=== PATIENT | male | born 1965 | race African-American/Black ===

== ENCOUNTER 2016-10-09 19:32 | Emergency (ER) | payer OTHER ==
[2016-10-09] MEDS ORDERED: SODIUM CHLORIDE 0.9% 500 ML IV STA (20:00)
[2016-10-09] MEDS ORDERED: SODIUM CHLORIDE 0.9% 1,000 ML IV STA (20:00)
[2016-10-09] MEDS ORDERED: METOCLOPRAMIDE 5 MG/ML 2 ML VIAL IVP STA (20:00)
[2016-10-09] MEDS ORDERED: cloNIDine HCL 0.1 MG TAB PO STA (20:02)
--- NOTE | 2016-10-09 20:09 | ED ---
General Adult HPI - General Chief complaint: Shortness of Breath Stated complaint: JEAN Time Seen by Provider: 10/09/16 19:39 Source: patient, EMS, RN notes reviewed, old records reviewed Mode of arrival: EMS Limitations: no limitations - History of Present Illness Initial comments: Chief complaint history of present illness is a 51-year-old male who is has been at [facility] for the past 48 hours cause of heroin abuse. The patient is on medications for heroin abuse today he reported he was feeling short of breath. Pulse ox as recorded at [facility] was 84%. Here is 98%. Patient reports she is feeling somewhat better. This is without supplemental oxygen. Denying chest pain at this time. No radiation of discomfort. Patient appears quite comfortable - Related Data Home Medications Medication Instructions Recorded Confirmed Darunavir Ethanolate [Prezista] 800 mg PO W/BRKFST 08/06/13 10/09/16 Ritonavir [Norvir] 100 mg PO DAILY 08/06/13 10/09/16 Acetaminophen Tab [Tylenol Tab] 650 mg PO Q4H PRN MDD 6 TABLETS 10/09/16 Buprenorphine HCl [Subutex] 2 mg SUBLINGUAL BID PRN 10/09/16 10/09/16 Emtricitabine/Tenofovir (Tdf) 1 tab PO DAILY 10/09/16 10/09/16 [Truvada 200 mg-300 mg Tablet] Ibuprofen [Motrin] 600 mg PO Q6HR PRN 10/09/16 10/09/16 LORazepam [Ativan] 1 mg PO Q4H PRN 10/09/16 10/09/16 Mirtazapine [Remeron] 15 mg PO HS 10/09/16 10/09/16 Ondansetron HCl [Zofran] 8 mg PO Q6H PRN 10/09/16 10/09/16 cloNIDine HCL [Catapres] 0.1 mg PO Q4H PRN 10/09/16 10/09/16 Allergies Allergy/AdvReac Type Severity Reaction Status Date / Time ibuprofen [From Motrin] Allergy Mild Swelling Verified 03/23/14 14:54 ketorolac tromethamine Allergy Mild Swelling Verified 03/23/14 01:46 [From Toradol] Penicillins Allergy Mild Itching Verified 03/23/14 01:46 Review of Systems ROS Statement: Those systems with pertinent positive or pertinent negative responses have been documented in the HPI. Review of systems. Patient denies headache or visual acuity changes no chest pain at this time he states he felt short of breath at [facility] is not appear to be dyspneic here. No nausea no vomiting no seizure activity. Patient states he last used heroin 3 days ago. All systems were reviewed past medical problems significant for HIV, sciatica, marijuana and heroin use. Vital signs temp 98.6 pulse 77 respiratory rate 20 pulse ox 98% on room air blood pressure 120/75 ROS Other: All systems not noted in ROS Statement are negative. Past Medical History Past Medical History: No Reported History Additional Past Medical History / Comment(s): HIV, sciatica, Low Back Pain History of Any Multi-Drug Resistant Organisms: None Reported Past Surgical History: No Surgical Hx Reported Past Anesthesia/Blood Transfusion Reactions: No Reported Reaction Past Psychological History: Anxiety, Depression Smoking Status: Current every day smoker Past Alcohol Use History: None Reported Past Drug Use History: Heroin, Marijuana - Past Family History Mother Family Medical History: No Reported History Additional Family Medical History / Comment(s): General Exam - General Exam Comments Initial Comments: General: The patient is awake and alert, in no apparent distress upon arrival to emergency room. Chief complaint was shortness of breath at [facility] for heroin use. Vital signs temp 98.6 pulse 77 respiratory rate 20 pulse ox 98% on room air with a blood pressure 120/75 area patient does not appear dyspneic or anxious. Eye: Pupils are equal, round and reactive to light, extra-ocular movements are intact ; there is normal conjunctiva bilaterally. No signs of icterus. Ears, nose, mouth and throat: There are moist mucous membranes and no oral lesions. Neck: The neck is supple, there is no tenderness, no stridor. Cardiovascular: There is a regular rate and rhythm. No murmur, rub or gallop is appreciated. Respiratory: Lungs are clear to auscultation, respirations are non-labored, breath sounds are equal. No wheezes, stridor, rales, or rhonchi. Pulse ox 90% room air with respiratory rate of 20. Gastrointestinal: No complaint of abdominal pain no nausea no vomiting no diarrhea. Back: Denies back pain. Musculoskeletal: No complaint of pain to upper or lower extremities. Patient states he does not shoot heroin but rather he snorts it. Neurological: No noted or complained of any focal or lateralizing findings. Skin: Tattoos on forearms Limitations: no limitations Course Vital Signs 10/09/16 10/09/16 10/09/16 19:35 19:59 20:47 Temperature 98.6 F Pulse Rate 77 75 Respiratory 20 20 18 Rate Blood Pressure 120/75 117/66 O2 Sat by Pulse 98 97 Oximetry 10/09/16 21:30 Temperature Pulse Rate 67 Respiratory 16 Rate Blood Pressure 114/66 O2 Sat by Pulse 98 Oximetry EKG Findings - EKG Comments: EKG Findings:: EKG was done and reviewed at 2033 showing a normal sinus rhythm with nonspecific ST-T wave changes rate 70. Eye was 150 QRS 90 QT [address] Kulkarni. This EKG was compared to one done on 03/23/2014 and they're very similar. Dr. Kulkarni Medical Decision Making - Medical Decision Making Medical decision making; patient's white count is 9.6 hemoglobin 12.8 hematocrit of 38. D-dimer just barely above normal at 0.63. The patient's potassium is 4.5, BUN 14 creatinine 0.8 GFR greater than 60, glucose 101. Chest x-ray was done and reviewed by radiologist his impression is the heart size is normal. The pulmonary vasculature is normal. The lungs are clear. Impression; no acute home and I process. As read by Dr. Orr Patient had to be awakened to discuss the findings. His pulse ox is 98% ,heart rate 70, blood pressure 116/80. Patient is not dyspneic, is not anxious. He will be released to go back to his rehab program. - Lab Data Result diagrams: 10/09/16 20:20 10/09/16 20:20 Lab Results 10/09/16 10/09/16 10/09/16 Range/Units 20:20 20:20 20:20 WBC 9.6 (3.8-10.6) k/uL RBC 4.26 L (4.30-5.90) m/uL Hgb 12.8 L (13.0-17.5) gm/dL Hct 38.2 L (39.0-53.0) % MCV 89.5 (80.0-100.0) fL MCH 30.1 (25.0-35.0) pg MCHC 33.6 (31.0-37.0) g/dL RDW 15.8 H (11.5-15.5) % Plt Count 265 (150-450) k/uL Neutrophils % 63 % Lymphocytes % 30 % Monocytes % 4 % Eosinophils % 2 % Basophils % 1 % Neutrophils # 6.0 (1.3-7.7) k/uL Lymphocytes # 2.8 (1.0-4.8) k/uL Monocytes # 0.4 (0-1.0) k/uL Eosinophils # 0.2 (0-0.7) k/uL Basophils # 0.1 (0-0.2) k/uL PT (9.0-12.0) sec INR (<1.2) APTT (22.0-30.0) sec D-Dimer (<0.60) mg/L FEU Sodium 139 (137-145) mmol/L Potassium 4.7 (3.5-5.1) mmol/L Chloride 106 (98-107) mmol/L Carbon Dioxide 24 (22-30) mmol/L Anion Gap 9 mmol/L BUN 14 (9-20) mg/dL Creatinine 0.80 (0.66-1.25) mg/dL Est GFR (MDRD) Af Amer >60 (>60 ml/min/1.73 sqM) Est GFR (MDRD) Non-Af >60 (>60 ml/min/1.73 sqM) Glucose 101 H (74-99) mg/dL Calcium 9.0 (8.4-10.2) mg/dL Magnesium 1.7 (1.6-2.3) mg/dL Total Bilirubin 0.3 (0.2-1.3) mg/dL AST 18 (17-59) U/L ALT 23 (21-72) U/L Alkaline Phosphatase 52 (38-126) U/L Total Creatine Kinase 71 (55-170) U/L CK-MB (CK-2) 0.4 (0.0-2.4) ng/mL CK-MB (CK-2) Rel Index 0.6 Troponin I <0.012 (0.000-0.034) ng/mL NT-Pro-B Natriuret Pep pg/mL Total Protein 6.5 (6.3-8.2) g/dL Albumin 3.6 (3.5-5.0) g/dL 10/09/16 10/09/16 Range/Units 20:20 20:20 WBC (3.8-10.6) k/uL RBC (4.30-5.90) m/uL Hgb (13.0-17.5) gm/dL Hct (39.0-53.0) % MCV (80.0-100.0) fL MCH (25.0-35.0) pg MCHC (31.0-37.0) g/dL RDW (11.5-15.5) % Plt Count (150-450) k/uL Neutrophils % % Lymphocytes % % Monocytes % % Eosinophils % % Basophils % % Neutrophils # (1.3-7.7) k/uL Lymphocytes # (1.0-4.8) k/uL Monocytes # (0-1.0) k/uL Eosinophils # (0-0.7) k/uL Basophils # (0-0.2) k/uL PT 11.8 (9.0-12.0) sec INR 1.2 H (<1.2) APTT 22.5 (22.0-30.0) sec D-Dimer 0.63 H (<0.60) mg/L FEU Sodium (137-145) mmol/L Potassium (3.5-5.1) mmol/L Chloride (98-107) mmol/L Carbon Dioxide (22-30) mmol/L Anion Gap mmol/L BUN (9-20) mg/dL Creatinine (0.66-1.25) mg/dL Est GFR (MDRD) Af Amer (>60 ml/min/1.73 sqM) Est GFR (MDRD) Non-Af (>60 ml/min/1.73 sqM) Glucose (74-99) mg/dL Calcium (8.4-10.2) mg/dL Magnesium (1.6-2.3) mg/dL Total Bilirubin (0.2-1.3) mg/dL AST (17-59) U/L ALT (21-72) U/L Alkaline Phosphatase (38-126) U/L Total Creatine Kinase (55-170) U/L CK-MB (CK-2) (0.0-2.4) ng/mL CK-MB (CK-2) Rel Index Troponin I (0.000-0.034) ng/mL NT-Pro-B Natriuret Pep 62 pg/mL Total Protein (6.3-8.2) g/dL Albumin (3.5-5.0) g/dL Disposition Clinical Impression: Anxiety Disposition: HOME SELF-CARE Condition: Stable Additional Instructions: Continue with [facility] rehabilitation program. Referrals: None,Stated [Primary Care Provider] - 1-2 days Time of Disposition: 22:03
[2016-10-09 20:29] LABS: Basophils # (A) 0.1 k/uL (0-0.2); Basophils % (A) 1 %; CH 31.1; CHCM 34.9; Eosinophils # (A) 0.2 k/uL (0-0.7); Eosinophils % (A) 2 %; HCT 38.2 % (39.0-53.0); HDW 2.42; HGB 12.8 gm/dL (13.0-17.5); Luc # (Auto) 0.13; Luc % (Auto) 1; Lymphocytes # (A) 2.8 k/uL (1.0-4.8); Lymphocytes % (A) 30 %; MCH 30.1 pg (25.0-35.0); MCHC 33.6 g/dL (31.0-37.0); MCV 89.5 fL (80.0-100.0); Mean Platelet Volume 7.2; Monocytes # (A) 0.4 k/uL (0-1.0); Monocytes % (A) 4 %; Neutrophils % (A) 63 %; RBC 4.26 m/uL (4.30-5.90); RDW 15.8 % (11.5-15.5); WBC 9.6 k/uL (3.8-10.6); WBC (Perox) 9.88
[2016-10-09 20:44] LABS: ALT 23 U/L (21-72); AST 18 U/L (17-59); Alkaline Phosphatase 52 U/L (38-126); Anion Gap 9 mmol/L; Blood Urea Nitrogen 14 mg/dL (9-20); Carbon Dioxide 24 mmol/L (22-30); Chloride 106 mmol/L (98-107); Glucose 101 mg/dL (74-99); Magnesium 1.7 mg/dL (1.6-2.3); Non-African American GFR(MDRD) >60 (>60 ml/min/1.73 sqM); Potassium 4.7 mmol/L (3.5-5.1); Sodium 139 mmol/L (137-145); Total Bilirubin 0.3 mg/dL (0.2-1.3); Total Protein 6.5 g/dL (6.3-8.2)
--- NOTE | 2016-10-09 20:46 | XR ---
EXAMINATION TYPE: XR chest 2V DATE OF EXAM: 10/09/2016 COMPARISON: 03/23/2014 INDICATION: Difficulty breathing pain with respiration TECHNIQUE: Frontal and lateral views of the chest are obtained. FINDINGS: The heart size is normal. The pulmonary vasculature is normal. The lungs are clear. IMPRESSION: 1. No acute pulmonary process.
[2016-10-09] MEDS ORDERED: ACETAMINOPHEN TAB 500 MG TAB PO STA (20:50)
[2016-10-09 21:00] LABS: INR 1.2 (<1.2); Partial Thromboplastin Time 22.5 sec (22.0-30.0); Prothrombin Time 11.8 sec (9.0-12.0)
[2016-10-09 21:09] LABS: Creatine Kinase 71 U/L (55-170)
[2016-10-09 21:22] LABS: Creatine Kinase MB 0.4 ng/mL (0.0-2.4); Troponin I <0.012 ng/mL (0.000-0.034)
[2016-10-09 21:31] VITALS: PULSE 67
[2016-10-09 22:16] VITALS: BP 110/70; RESP 18; TEMP 97.7
== END 2016-10-09 22:19 | disposition home or self-care (01) ==
LOC: EC 19:32
DX: F41.9 Anxiety disorder, unspecified (principal); F32.9 Major depressive disorder, single episode, unspecified; F17.200 Nicotine dependence, unspecified, uncomplicated; B20 Human immunodeficiency virus [HIV] disease; Z88.0 Allergy status to penicillin; Z88.6 Allergy status to analgesic agent; Z79.899 Other long term (current) drug therapy
CPT/HCPCS: 36415; 93005; 85379; 83880; 80053; 82550; 82553; 83735; 84484; 85025; 85610; 85730; 71020; 99285; 96374; 96361 ×2; J2765